=== PATIENT | male | born 1985 | race African-American/Black ===

== ENCOUNTER 2016-05-14 19:08 | Emergency (ER) | payer SELFPAY ==
--- NOTE | ~2016-05-14 | CR252 ---
[facility] A Service of [facility] & [facility] RADIOLOGY TEXT RESULTS PATIENT: EDILSON GARCIA LOCATION: SED : 83 UNIT #: [id number] AGE: [address]: Phyllis Wilder APRN SEX: M ORDER DR: [id number] [place] [id number] E MR#: [id number] Acc #: [id number] NAME: EDILSON GARCIA : 1985 SEX: M STUDY DATE/TIME: 05/14/2016 19:39 UNIT: SED ROOM: STUDY DESCRIPTION: CR Tibia and Fibula 2 Views Lt Attending Physician: Phyllis Wilder A.P.R.N. Ordering Physician: Phyllis Fatima A.P.R.N. Primary Care Physician: No Primary Care Physician MEDICAL IMAGING REPORT This report is preliminary unless electronic signature is present. EXAM Left tibia and fibula HISTORY Left lower leg pain for 4 days. No known injury. Cellulitis on the lower extremity FINDINGS Two views of the left tibia and fibula without comparison. There is no acute fracture or dislocation. Alignment at the knee and ankle is anatomic. No periosteal reaction. IMPRESSION Negative left tibia and fibula. Dictated by... Joey Mcmahon M.D. THIS IS AN ELECTRONICALLY VERIFIED REPORT Joey Mcmahon M.D. at 05/15/2016 3:25 PM ABDOULAYE/lencho TD: 05/14/2016 23:19 JOB #: [id number] MEDICAL IMAGING REPORT Page 1 of 1
[~2016-05-14 19:08] MED LIST: NO MEDICATIONS
[2016-05-14 19:19] LABS: BASOPHIL# 0.1 X10e3 (0-0.3); BASOPHIL% 0.8 % (0-2.5); EOSINOPHIL# 0.2 X10e3 (0-0.7); EOSINOPHIL% 2.5 % (0.0-7.0); HEMATOCRIT 47.6 % (38.0-50.0); HEMOGLOBIN 15.7 gm/dL (13.0-16.0); LYMPHOCYTE# 2.8 X10e3 (1.0-3.5); LYMPHOCYTE% 33.7 % (17.0-45.0); MEAN CELL VOLUME 80.6 FL (83-96); MEAN CORPUSCULAR HEMOGLOBIN 26.6 PG (28-34); MEAN PLATELET VOLUME 8.2 FL (6.5-11.5); MONOCYTE# 0.6 X10e3 (0-1.0); MONOCYTE% 7.3 % (3.0-12.0); NEUTROPHIL# 4.6 X10e3 (1.5-7.1); NEUTROPHIL% 55.7 % (40-75); PLATELET COUNT 417 X10e3 (140-420); RED CELL DISTRIBUTION WIDTH 14.4 % (11.0-15.5); WHITE BLOOD COUNT 8.4 X10e3 (4.0-10.5)
[2016-05-14 19:20] LABS: DIFF IND NO
[2016-05-14 19:33] LABS: BILIRUBIN,TOTAL 0.4 mg/dL (0.2-2.0); BUN/CREATININE RATIO 17.5; CALCIUM SERUM 9.3 mg/dL (8.4-10.2); CREATININE SERUM 0.8 mg/dL (0.6-1.4); GLOM FILT RATE Estimated 137.1 mL/min (>60); POTASSIUM 4.1 mmol/L (3.5-5.1); PROTEIN TOTAL SERUM 8.6 g/dL (6.0-8.3)
== END 2016-05-14 20:26 | disposition home or self-care (01) ==
LOC: SED 19:08
PROVIDERS: Nurse Practitioner
DX: M79.605 Pain in left leg (principal); F17.210 Nicotine dependence, cigarettes, uncomplicated
CPT/HCPCS: 36415; 73590; 80053; 85025; 99283